=== PATIENT | male | born 1985 | race Caucasian/White ===

== ENCOUNTER 2020-01-23 17:50 | Emergency (ER) | payer SELFPAY ==
[~2020-01-23] VITALS: Ht 177.2 cm; Wt 88.9 kg
[2020-01-23 18:04] VITALS: BP 154/97
--- NOTE | 2020-01-23 18:10 | NUR ---
PT C/O LEFT HAND THUMB & INDEX FINGER LAC FROM [employer]LESAW AP[employer]OX ONE HOUR [employer]END[employer]. PT WAS REFERRED BY [facility] FOR FURTHER TX. REPORTS PAIN 02/12. VSS; PATIENT POSITIONED FOR COMFORT; HOB ELEVATED; BEDRAILS UP X1; BED DOWN. ER MD MADE AWARE OF PT STATUS.
--- NOTE | 2020-01-23 18:21 | NUR ---
PT AMB TO BED 06
--- NOTE | 2020-01-23 18:29 | NUR ---
LATRICIA VENEGAS IS EVALUATING PT AT BEDSIDE.
[2020-01-23] MEDS ORDERED: LIDOCAINE MPF 1% 10 MG/ML VIAL INJ ONE ×2 (18:35→19:15)
--- NOTE | 2020-01-23 18:47 | NUR ---
x-ray at bedside
--- NOTE | 2020-01-23 19:10 | NUR ---
RECIVED REPORT FROM STORMY LIU. CONTINUATION OF CARE.
--- NOTE | 2020-01-23 19:11 | NUR ---
REPORT GAVE TO NOE POWELL. TRANSFER CARE AT THIS TIME.
--- NOTE | 2020-01-23 19:14 | NUR ---
LATRICIA VENEGAS AT BEDSIDE.
[2020-01-23 19:45] VITALS: BP 148/76
--- NOTE | 2020-01-23 19:46 | NUR ---
Patient discharged with v/s stable. Written and verbal after care instructions given and explained. Patient alert, oriented and verbalized understanding of instructions. Ambulatory with steady gait. All questions addressed prior to discharge. ID band removed. Patient advised to follow up with PMD. Rx of MOTRIN AND BACITRACIN given. Patient educated on indication of medication including possible reaction and side effects. Opportunity to ask questions provided and answered.
[2020-01-23] MEDS ORDERED: BACITRACIN OINT 500 UNITS/GM PKT TP ONE (19:47)
== END 2020-01-23 19:46 | disposition home or self-care (01) ==
LOC: MED 17:50
DX: S61.012A Laceration without foreign body of left thumb without damage to nail, initial encounter (principal); S61.211A Laceration without foreign body of left index finger without damage to nail, initial encounter; R03.0 Elevated blood-pressure reading, without diagnosis of hypertension; W26.8XXA Contact with other sharp object(s), not elsewhere classified, initial encounter; Y93.89 Activity, other specified; Y92.89 Other specified places as the place of occurrence of the external cause; Y99.8 Other external cause status
CPT/HCPCS: 12001; 73130; 90471; 90715; 99283; J2001